=== PATIENT | male | born 1965 | race Caucasian/White ===

== ENCOUNTER 2021-02-03 07:46 | Outpatient (CLI) | payer BC, SELFPAY ==
--- NOTE | 2021-02-03 08:43 | ECG_ITS ---
Measurements Intervals [place] Rate: 70 P: 17 [place]: 146 QRS: 25 QRSD: 107 T: 29 QT: 399 QTc: 432 Interpretive Statements SINUS RHYTHM VENTRICULAR PREMATURE COMPLEX DELAYED PRECORDIAL R/S TRANSITION BORDERLINE ECG Electronically Signed On 02-03-2021 9:09:38 CDT by Joon Pearson D.O.
[2021-02-03 09:13] LABS: Basophils Absolute Auto 0.1 K/mm3 (0.0-0.1); Basophils Percent Auto 1.6 % (0.2-1.2); Eosinophils Absolute Auto 0.2 K/mm3 (0-0.3); Eosinophils Percent Auto 4.2 % (0-4.4); Hemoglobin 15.6 g/dL (14.0-18.0); Immature Granulocyte Absolute 0.03 K/mm3 (0.00-0.031); Immature Granulocyte Percent A 0.5 % (0-0.5); Lymphocytes Absolute Auto 1.87 K/mm3 (0.9-3.2); Lymphocytes Percent Auto 32.6 % (18.3-44.2); Mean Corpuscular HGB Conc 34.7 g/dl (32-36); Mean Corpuscular Hemoglobin 32.8 pg (26-34); Mean Corpuscular Volume 94.5 fl (80-100); Mean Platelet Volume 9.9 fl (7.4-10.4); Monocytes Absolute Auto 0.7 K/mm3 (0.1-0.6); Monocytes Percent Auto 11.9 % (2.6-8.5); Neutrophils Absolute Auto 2.8 K/mm3 (1.3-6.7); Neutrophils Percent Auto 49.2 % (45.5-73.1); Platelet Count Result 189 k/mm3 (150-375); Red Blood Count 4.76 M/mm3 (4.6-6.20); White Blood Count 5.7 K/mm3 (4.5-10.0)
[2021-02-03 09:23] LABS: Urine Cotinine NEGATIVE
[2021-02-03 09:25] LABS: Albumin Level 4.5 g/dL (3.5-5.1); Anion Gap 7 mmol/L (8-16); Blood Urea Nitrogen 9 mg/dL (9-20); Calcium 9.2 mg/dL (8.4-10.2); Carbon Dioxide 31 mmol/L (22-30); Chloride 99 mmol/L (98-107); Estimated Glomerular Filt Rate > 60; Glucose 100 mg/dL (65-110); Potassium 4.3 mmol/L (3.4-5.0); Sodium 137 mmol/L (137-145)
[2021-02-03 09:26] LABS: Hemoglobin A1C 5.1 % (<5.7)
== END 2021-02-03 07:47 | disposition home or self-care (01) ==
LOC: ANHSURGERY 07:53
PROVIDERS: PCP Family Medicine Adolescent Medicine; Visit Provider Orthopaedic Surgery
DX: Z01.818 Encounter for other preprocedural examination (principal); M17.11 Unilateral primary osteoarthritis, right knee; I49.3 Ventricular premature depolarization
CPT/HCPCS: 80048; 80307; 82040; 83036; 85025; 86850; 86900; 86901; 87070; 93005

== ENCOUNTER 2021-02-16 01:16 | Day surgery (SDC) | payer BC, SELFPAY ==
[2021-02-03 08:04] VITALS: BP 166/98; PULSE 72; RESP 18; TEMP 37.3; O2SAT 98; BMI 26.7
--- NOTE | 2021-02-13 16:03 | PM.IMHP ---
H&P: HPI History of Present Illness Date/Time: 02/13/21 16:03 55-year-old male presents today for a right [place] partial knee replacement versus total knee replacement. He has been having pain in his knee for years. It has progressively worsened. It is a point now where he has qarh-gg-iebm arthritis. He has tried anti-inflammatories the last 1 being diclofenac which bothers his stomach and he stopped. He has reached a point where he is having symptoms on a regular basis and feels he would like to proceed with surgery at this point. He has been evaluated and it is felt that he would be a good candidate for partial knee replacement, he presents today for that. <ALLEN Marin - Last Filed: 02/13/21 16:08> Chief Complaint: Right knee DJD <ALLEN Marin - Last Filed: 02/13/21 16:08> Review of Systems Review of Systems: All systems reviewed & are unremarkable except as noted in HPI and below <ALLEN Marin - Last Filed: 02/13/21 16:08> [facility] Past Medical History Medical History: Medical History Hypertension <ALLEN Marin - Last Filed: 02/13/21 16:08> Social History Social History: Social History Smoking status: Never smoker Alcohol intake: current Drinks per week: 12 Substance use: never Living arrangements: with family Additional living arrangements comments: Spiritual care concerns: No <ALLEN Marin - Last Filed: 02/13/21 16:08> Meds Home Medications and Allergies Home medications: Home Medications Medication Instructions Recorded Confirmed Type omega-3 fatty acids-vitamin E 1 cap PO DAILY 02/03/21 02/16/21 History [Fish Oil] propranolol 160 mg PO QAM 02/03/21 02/16/21 History <ALLEN Marin - Last Filed: 02/13/21 16:08> Allergies/Adverse reactions: Allergies Allergy/AdvReac Type Severity Reaction Status Date / Time No Known Allergies Allergy Verified 02/16/21 06:23 <ALLEN Marin - Last Filed: 02/13/21 16:08> Exam Narrative: 55-year-old male alert pleasant. He is 6 ft 2-1/2 inch and 216 lb. He his right knee range of motion is from 3-140 degrees. He has a moderate effusion. He does have a palpable popliteal cyst. Mild medial pseudolaxity. He has gjtq-xn-ryldxlqw pain with palpation medial joint line. Negative Cinthya's. Hip range motion is full without discomfort. Negative Stinchfield maneuver. Normal quad strength. 2+ dorsalis pedis pulse. Normal sensation right lower extremity. No edema in right lower extremity. <ALLEN Marin - Last Filed: 02/13/21 16:08> Resp: Auscultation: clear to auscultation bilaterally <ALLEN Marin - Last Filed: 02/13/21 16:08> Cardio: Rate: regular rate <ALLEN Marin - Last Filed: 02/13/21 16:08> Rhythm: regular rhythm <ALLEN Marin - Last Filed: 02/13/21 16:08> Assessment and Plan Additional Plan 55-year-old male who has medial compartment arthritis in the right knee and continued symptoms. He has not improved from nonsurgical treatment and feels this point he would like to proceed with [place] partial knee replacement at this time. Surgical procedure as well as the risks and complications were discussed in detail and all questions were answered and we will proceed. He will see his primary care doctor for medical clearance. His nasal swab was negative. Chem panel was all within normal limits, creatinine 0.80. Hemoglobin is 15.6 and platelets were 189. patient will stop his fish oil and Advil or Aleve products 1 week prior to surgery. We will plan to use Eliquis for DVT prophylaxis. <ALLEN Marin - Last Filed: 02/13/21 16:08>
[2021-02-16] VITALS (14 sets, daily range): BP systolic 133–160; BP diastolic 82–98; PULSE 68–91; RESP 10–18; TEMP 36.1–36.8; O2SAT 92–100; BMI 26.9; BMI 28.6
--- NOTE | ~2021-02-16 | XR_ITS ---
EXAMINATION: XR surgery orthopedic DATE: 02/16/2021 11:20 INDICATION: Right knee unicompartmental arthroplasty TECHNIQUE: Single frontal fluoroscopic image of the medial side of the right knee was obtained during procedure performed by Dr. Dumont. Radiologist was not present for the imaging or procedure. The am ount of fluoroscopy time used during this procedure was 0.4 minutes. COMPARISON: 06/19/2018 FINDINGS: Images demonstrate osteotomy at the medial tibial plateau with head pain and trial for a medial unico mpartmental arthroplasty. No fracture. IMPRESSION: 1. Fluoroscopy utilized during right knee medial unicompartmental arthroplasty. See procedure note fo r further detail. Reviewed, dictated and finalized at location B. IMPRESSION: 1. Fluoroscopy utilized during right knee medial unicompartmental arthroplasty. See procedure note for further detail.
--- NOTE | ~2021-02-16 | XR_ITS ---
EXAMINATION: XR knee RT 2V DATE: 02/16/2021 11:13 INDICATION: Right partial knee arthroplasty. TECHNIQUE: AP and crosstable lateral views of the right knee were obtained. COMPARISON: 06/19/2018 FINDINGS: Expected appearance of a right knee medial unicompartmental arthroplasty. The tibial tray and condyla r component. Well seated with no periprosthetic lucency to suggest loosening. The intervening spacers in expected position. Alignment appears essentially anatomic with normal joint space in the lateral and patellofemoral compartments. No fracture. Expected intra-articular, intramedullary and soft tissu e gas. Small amount of heterotopic ossification posterolateral to the proximal right fibular diaphysi s and likely medial side of the distal femoral diaphysis. IMPRESSION: 1. Right knee medial unicompartmental arthroplasty, negative for postoperative purposes. Reviewed, dictated and finalized at location B.
[2021-02-16] MEDS: ACETAMINOPHEN 500 MG TABLET 1000 MG PO ×2 (06:26→14:35)
[2021-02-16] MEDS: TRANEXAMIC ACID 1,000MG/ISO100 1,000 MG/100 ML BAG 200 MG IVPB (06:43)
--- NOTE | 2021-02-16 07:06 | P.PNAN_ITS ---
Anes - Initial Pre Proc Eval Procedure: Operation Date: 02/16/21 07:30 Proposed Procedures p [place] Partial Right Knee Arthroplasty Versus Right Total Knee Arthroplasty - Keanu Dumont MD Date/Time: 02/16/21 07:06 Surgeon: Keanu Dumont MD Pre Op Diagnosis: Medial Compartment OA Rt Knee Patient Data Age: 55 Gender: M Height: 1.88 m Weight: 94.9 kg Last Vital Signs Temp 36.8 C 02/16/21 06:15 Pulse 72 02/16/21 06:15 Resp 18 02/16/21 06:15 BP 133/82 02/16/21 06:15 Pulse Ox 98 02/16/21 06:15 Allergies Allergy/AdvReac Type Severity Reaction Status Date / Time No Known Allergies Allergy Verified 02/16/21 06:23 Home Medications Medication Instructions Recorded Confirmed Type omega-3 fatty acids-vitamin E 1 cap PO DAILY 02/03/21 02/16/21 History [Fish Oil] propranolol 160 mg PO QAM 02/03/21 02/16/21 History Patient hx anesthesia problems: none Family hx anesthesia problems: none Results Review: All pre-operative results and documents have been reviewed as part of the pre-operative evaluation. PMFSH Past Medical History Medical History Hypertension Social History Social History Smoking status: Never smoker Alcohol intake: current Drinks per week: 12 Substance use: never Living arrangements: with family Additional living arrangements comments: Spiritual care concerns: No Anes - Eval Final PreProcedure Day of Procedure 02/16/21 07:06 Patient weight: overweight Heart: regular rate and rhythm Lungs: clear to auscultation Airway: Mallampati scale class II Neurological: alert and oriented Last oral intake: >/= 8 hours ASA classification: II Emergent: no Anesthetic plan: proceed Anesthesia type and monitoring: general ETT and standard monitoring Results Review: All pre-operative results and documents have been reviewed as part of the pre-operative evaluation. Informed Consent: The patient's anesthetic plan and its attendant risks and benefits were discussed with the patient/family/POA. Questions were solicited and answers provided to the satisfaction of the patient/family/POA.
[2021-02-16] MEDS: LACTATED RINGERS 1,000 ML 30 ML IV CONT ×2 (07:10→10:59)
--- NOTE | 2021-02-16 07:17 | WPDHPUPDATE1 ---
History and Physical Update Update Date/Time: 02/16/21 07:17 History and Physical has been reviewed, including an updated exam of the patient. There are NO changes in the patient's condition. Risks, benefits, and alternatives have been discussed and questions answered. Patient agrees to proceed with procedure.
[2021-02-16] MEDS: ceFAZolin 2 GM/D5W 50 ML 2 GM/50 ML BAG IVPB (07:28)
[2021-02-16] MEDS: ceFAZolin SODIUM 1 GM VIAL 3 GM IRRIGATION (08:23)
[2021-02-16] MEDS: GENTAMICIN BONE CEMENT REFOBACIN 1 EACH TOPICAL (08:55)
[2021-02-16] MEDS: TRANEXAMIC ACID 1,000 MG/10 ML AMPUL 1000 MG IV PUSH (10:00)
[2021-02-16] MEDS: ceFAZolin SODIUM 1 GM VIAL IV PUSH (10:00)
--- NOTE | 2021-02-16 11:13 | W.PM.PROC2 ---
Procedure Note - Detailed Date of Procedure 02/16/21 Pre-op Diagnosis Medial Compartment OA Rt Knee Post-op Diagnosis same Procedure Performed [place] partial knee replacement medial compartment right Surgeon Keanu Dumont MD [employer] Anesthesia general Indications Pain, faly-dy-lhyl arthritis, failed non operative treatment. Findings Anteromedial pattern osteoarthritis right knee Description of Procedure Patient was brought to the operating room and general anesthesia was administered. He received 2 g of Ancef weight based vancomycin 1 g of tranexamic acid preoperatively in the right knee was prepped draped usual fashion. Tourniquet was elevated to 250 mmHg after exsanguination of the limb. A 4 in longitudinal incision was made from the medial aspect of the superior pole of patella to medial to the tibial tubercle. An arthrotomy was made in line with the incision. A 1/2 cm split in the via vastus medialis obliquus was performed. Some of the infrapatellar fat pad was excised for exposure. Anteromedial osteophyte removed and osteophytes from around the intercondylar notch and the medial distal femur were removed. There was bony eburnation in the anterior 1/2 of the medial tibial plateau and the distal femur. The ACL was intact. I saw no cartilage abnormality in the lateral compartment. The medium spoon fit properly the large spoon was too large anterior to posterior. We inserted the 2 mm spoon which fit snugly the 3 was too tight to go in. We linked the tibial cutting guide set at 7? of posterior slope to the 2 mm spoon with the 4 mm G clamp and cut the tibial plateau. We saw that we had matched his squaxin slope on the wafer and the cartilage in the posterior 1/3 of the tibial plateau looked normal. Bone quality was unusually dense throughout. The wafer fit perfectly to a size D tibia. We placed the size D right slotted component on the tibial plateau and brought in the mini C-arm to confirm that we had proper positioning and it was line to line posteromedial medial and anteromedial. A guide kristy was inserted down the femoral canal and we linked this to the medium femoral drill guide set at 4 mm and this was positioned in the center of the medial tibial plateau. We cheated about a mm or mm and half laterally for optimal bearing tracking. The holes in the femur were drilled. Again the bone density was excellent. The posterior femoral cut was made and we milled with the 0 mm spigot. The remnants of the posterior horn of the medial meniscus were completely excised and this gave us direct access into the popliteal cyst that tracked upward along the semimembranosus tendon. The cyst was completely drained by this time spontaneously. On trialing the 4 Feeler was appropriate at 100? of flexion it is not with the ankle and appropriately loose with valgus stress. At 20? of flexion the 1 could not be inserted but with valgus stress it could be inserted with a little bit of play. The 3 mm spigot was placed and we milled. On trialing the 4 mm Feeler had the same characteristics as above and at 20? of flexion the 4 mm Feeler was snug without valgus stress and had play with valgus stress. We placed the 4 mm bearing trial and there were equal amounts of wiggle at 100? and 20?. The impingement guide was applied the anterior femur milled and posteriorly this just removed a little bit of cartilage so the medium was the perfect size for him from anterior to posterior plane. On trialing again he had superb range of motion with a few degrees of hyperextension to 140? of flexion without impingement and the bearing tracking was against the medial wall at 90? and a [place] elevator could be interposed easily and starting at about 10? from full extension it rode off the vertical wall to be about 4 mm from the vertical wall at 5? of hyperextension. The keel slot for the size D tibia was prepared. The bone of the tibia was of excellent quality and we used a jogre osborne
[2021-02-16] MEDS: fentaNYL CITRATE INJ (*CRX) 100 MCG/2 ML VIAL 25 MCG IV PUSH ×5 (11:17→13:06)
--- NOTE | 2021-02-16 13:58 | ADMGEN ---
This patient, Aki Child, was admitted to Medical Room 257-01. Patient oriented to hospital policies and general routines including ID bracelet, bed and alarms, visiting hours, pain management, procedures, bathroom and other care routines, personal items, smoking policy, room service/diet, and visiting hours. Information on how to activate the Rapid Response Team has been discussed. Patient are encouraged to report perceived risks to care and to ask questions if they do not understand what they are told or what they should do.
[2021-02-16] MEDS: SODIUM CHLORIDE 0.9% IV 1,000 ML 125 ML IV CONT (14:36)
--- NOTE | 2021-02-16 15:15 | PC.NURSE ---
patient worked with PT and OT and did very well.
[2021-02-16] MEDS: SENNA/DOCUSATE SODIUM TABLET 2 TAB PO (16:29)
[2021-02-16] MEDS: oxyCODONE HCL (*CRX) 5 MG TAB IR PO (16:29)
--- NOTE | 2021-02-18 08:30 | P.DS_ITS ---
DS: Admitting Diagnosis Discharge Date 02/16/21 Admitting Diagnosis DJD right knee DS: Summary Hospital Course Hospital Course: stable Time Spent with Patient Time attestation: Total time spent providing and/or coordinating discharge services:55-year-old male who underwent [place] partial knee replacement on 02/16. Underwent procedure without any complications. He did very well postoperatively. He was up walking the day of surgery he was comfortable. His pain was well controlled. He wished to go home that day rather than stay overnight. He is on Eliquis for DVT prophylaxis start this tomorrow morning o'clock. He did receive 1 g of Ancef 1 dose of vancomycin postoperatively when he was on floor prior to his discharge. Pain is well controlled oxycodone 5 mg. he is also on scheduled Tylenol. He is weight-bearing as tolerated. He is on MiraLax and Senokot. He is also on Celebrex 100 mg daily. Patient was advised to keep leg elevated at home but does exercise on a regular basis. He has outpatient therapy starting later this week. Patient was advised any questions or concerns he will call the office otherwise we will see him at his appointment dates. Discharge Plan Discharge Patient Disposition: Home, Self-Care Discharge Instructions: KEANU DUMONT M.D [facility] [address] [address] POST-OPERATIVE DISCHARGE INSTRUCTIONS TOTAL KNEE ARTHROPLASTY 1. When resting, lie on back with leg elevated above hear to minimize swelling. Significant swelling could indicate a blood clot and if this occurs call the office (or go to the ER) to have a venous ultrasound. 2. Do exercise 5 times a day. 3. Do not sit with leg down except for meals. 4. Wound Care: Nursing will give additional dressings at discharge. Patient to change dressing at home 1 week from surgery, then maintain until seen in office. 5. May shower with dressing in place. 6. Follow weight bearing status instructions. 7. Limit sitting in chair with leg down to 20 min at a time 4 times a day Stand Alone Forms: General Discharge Instructions Follow-up/Referrals: Keanu Dumont MD [Physician] - Keep Reg. Scheduled Appt. Discharge Medications: New acetaminophen 500 mg Tablet 1,000 mg PO Q6H Qty: 90 RF: 0 Eliquis 2.5 mg Tablet 2.5 mg PO Q12HR Qty: 27 RF: 0 polyethylene glycol 3350 [Miralax] 17 gram Powder In Packet 17 g PO QAM Qty: 30 RF: 0 cephalexin 500 mg Capsule 500 mg PO Q6HR Qty: 40 RF: 0 celecoxib [Celebrex] 100 mg Capsule 100 mg PO DAILY Qty: 30 RF: 0 oxycodone 5 mg Tablet 5 mg PO Q4HR Qty: 50 RF: 0 Continued propranolol 160 mg capsule,extended release 24 hr 160 mg PO QAM RF: 0 Discontinued Fish Oil 1,000 mg Capsule 1 cap PO DAILY RF: 0
== END 2021-02-16 19:00 | disposition home or self-care (01) ==
LOC: ANHSURGERY 06:02 → ANH2MED 13:45
PROVIDERS: PCP Family Medicine Adolescent Medicine; Visit Provider Orthopaedic Surgery
PROC: (CPT 27446; principal; 2021-02-16 07:30)
DX: M17.11 Unilateral primary osteoarthritis, right knee (principal); I10 Essential (primary) hypertension
CPT/HCPCS: 27446; 73560; 97161; 97165; A9270; C1713; C1776; J0131; J0171; J0690; J1100; J1170; J1885; J2250; J2270; J2405; J2704; J2710; J2795; J3010; J3370; J7030; J7120

== ENCOUNTER 2023-07-06 12:55 | Emergency (ER) | payer BC, SELFPAY ==
[2023-07-06 13:11] VITALS: BP 151/83; PULSE 73; RESP 16; TEMP 37.1; O2SAT 96
--- NOTE | 2023-07-06 13:24 | PC.NURSE ---
patient was able to dislodge the foreign body before seeing a provider. left from waiting room
== END 2023-07-06 14:13 | disposition left against medical advice (07) ==
LOC: ANHED 13:31
PROVIDERS: PCP Family Medicine Adolescent Medicine
DX: R09.89 Other specified symptoms and signs involving the circulatory and respiratory systems (principal)
CPT/HCPCS: 99199